=== PATIENT | female | born 1975 | race African-American/Black ===

== ENCOUNTER 2022-05-20 18:01 | Emergency (ER) | payer MEDICAID ==
[~2022-05-20] VITALS: Ht 167.6 cm; Wt 68.0 kg
[2022-05-20 18:09] VITALS: BP 103/48
== END 2022-05-20 20:56 | disposition left against medical advice (07) ==
LOC: ER 18:01
DX: Z53.21 Procedure and treatment not carried out due to patient leaving prior to being seen by health care provider (principal)